=== PATIENT | female | born 1935 | race Two or more races ===

== ENCOUNTER 2023-12-25 11:54 | Emergency (ER) | payer OTHER ==
[~2023-12-25] VITALS: Ht 160 cm; Wt 51.3 kg
[2023-12-25] MEDS ORDERED: MULTIVIT INFUSN,ADULT 4,VIT K 10 ML VIAL IV ONE (12:30)
[2023-12-25] MEDS ORDERED: LEVALBUTEROL HCL 0.63 MG/3 ML SOLUTION IH ONE (12:30)
[2023-12-25] MEDS ORDERED: BENZONATATE 100 MG CAPSULE PO ONE (12:30)
[2023-12-25] MEDS ORDERED: 0.9 % SODIUM CHLORIDE 1,000 ML IV ONE (12:30)
[2023-12-25 12:54] LABS: HEMATOCRIT 35.3 % (36.0-45.00); HEMOGLOBIN 11.8 g/dL (12.0-15.00); MEAN CELL VOLUME 89.6 fL (80.00-100.00); MEAN CORPUSCULAR HEMOGLOBIN 29.8 pg (27.00-32.0); MEAN CORPUSCULAR HGB CONC 33.3 g/dl (32.0-36.0); PLATELET COUNT 98 K/uL (150-450); RED BLOOD COUNT 3.94 M/uL (4.00-6.00); RED CELL DISTRIBUTION WIDTH 13.2 % (11.5-14.5)
[2023-12-25 15:58] LABS: PH,URINE 6.5 (5.0-8.0); URINE APPEARANCE Cloudy; URINE BILIRRUBIN Negative (NEGATIVE); URINE BLOOD Small; URINE COLOR Yellow; URINE KETONE Negative (NEGATIVE); URINE LEUKOCYTE Small; URINE NITRATE Negative; URINE UROBILINOGEN 0.2 E.U./dl
[2023-12-25 16:01] LABS: URINE EPITHELIAL CELLS 10.3 uL (0.0-38.8); URINE RBC 28.3 uL (0.0-20.8); URINE WBC 486.6 uL (0.0-23.2)
[2023-12-25 16:07] LABS: URINE GLUCOSE >=1000 MG/DL (NEGATIVE); URINE PROTEIN 100 (NEGATIVE)
[2023-12-25 16:08] LABS: URINE BACTERIA > 9851.5 uL (0.0-1933)
[2023-12-25 16:50] LABS: HEMATOCRIT 32.2 % (36.0-45.00); HEMOGLOBIN 10.9 g/dL (12.0-15.00); MEAN CORPUSCULAR HGB CONC 33.7 g/dl (32.0-36.0); RED BLOOD COUNT 3.62 M/uL (4.00-6.00)
[2023-12-25 16:58] LABS: PLATELET COUNT 91 K/uL (150-450)
== END 2023-12-25 17:25 | disposition home or self-care (01) ==
LOC: ER 11:54
PROVIDERS: General Practice
DX: J00 Acute nasopharyngitis [common cold] (principal); I10 Essential (primary) hypertension; B34.9 Viral infection, unspecified; Z20.822 Contact with and (suspected) exposure to COVID-19
CPT/HCPCS: 36415; 71046; 93005; 94640; 96365; 96366; 99283; J3490; J7030

== ENCOUNTER 2024-03-22 16:19 | Inpatient (IN) | payer OTHER ==
[~2024-03-22] VITALS: Ht 160 cm; Wt 0.5 kg
[2024-03-22] MEDS ORDERED: PIPERACILLIN/TAZOBACTAM SODIUM 3.375 GM in 0.9 % SODIUM CHLORIDE 100 ML IV SCH (19:41)
[2024-03-22] MEDS ORDERED: 0.9 % SODIUM CHLORIDE 1,000 ML IV SCH (19:45)
[2024-03-22] MEDS ORDERED: ATORVASTATIN CALCIUM 40 MG TABLET PO SCH (19:45)
[2024-03-22] MEDS ORDERED: ACETAMINOPHEN 325 MG TABLET PO PRN (19:45)
[2024-03-22] MEDS ORDERED: ASPIRIN 81 MG TABLET.EC PO SCH (19:45)
[2024-03-22] MEDS ORDERED: hydrALAZINE HCL 20 MG VIAL IV PRN (20:30)
[2024-03-22 21:19] LABS: PH,URINE 5.5 (5.0-8.0); URINE BILIRRUBIN Negative (NEGATIVE); URINE BLOOD Large; URINE COLOR Orange; URINE GLUCOSE Negative (NEGATIVE); URINE KETONE Negative (NEGATIVE); URINE LEUKOCYTE Moderate; URINE NITRATE Positive
[2024-03-22 21:35] LABS: URINE EPITHELIAL CELLS 17.5 uL (0.0-38.8); URINE RBC 9.7 uL (0.0-20.8); URINE WBC 247.7 uL (0.0-23.2)
[2024-03-22 21:59] LABS: URINE BACTERIA > 9821.5 uL (0.0-1933); URINE PROTEIN 100 (NEGATIVE)
[2024-03-22 22:00] LABS: URINE APPEARANCE CLEAR
[2024-03-22 22:17] VITALS: O2SAT 97
[2024-03-23] VITALS (9 sets, daily range): BP systolic 101–128; BP diastolic 75–89; O2SAT 90–99
[2024-03-23] MEDS ORDERED: ACETAMINOPHEN 500 MG GEL..CAP PO PRN (08:15)
[2024-03-23 08:42] LABS: MEAN CELL VOLUME 85.9 fL (80.00-100.00); MEAN CORPUSCULAR HGB CONC 34.7 g/dl (32.0-36.0); RED BLOOD COUNT 2.41 M/uL (4.00-6.00); RED CELL DISTRIBUTION WIDTH 14.5 % (11.5-14.5)
[2024-03-23 08:51] LABS: MEAN CORPUSCULAR HEMOGLOBIN 29.8 pg (27.00-32.0)
[2024-03-23 08:54] LABS: HEMATOCRIT 20.7 % (36.0-45.00)
[2024-03-23 08:55] LABS: HEMOGLOBIN 7.2 g/dL (12.0-15.00)
[2024-03-23 08:56] LABS: PLATELET COUNT 110 K/uL (150-450)
[2024-03-23 09:01] LABS: ERYTHROCYTE SEDIMENTATION RATE < 1 mm/hr
[2024-03-23] MEDS ORDERED: FUROsemide 20 MG/2 ML VIAL IV PRN (09:30)
[2024-03-23 16:42] LABS: MEAN CELL VOLUME 86.5 fL (80.00-100.00); MEAN CORPUSCULAR HEMOGLOBIN 30.6 pg (27.00-32.0); MEAN CORPUSCULAR HGB CONC 35.3 g/dl (32.0-36.0); PLATELET COUNT 115 K/uL (150-450); RED BLOOD COUNT 2.32 M/uL (4.00-6.00); RED CELL DISTRIBUTION WIDTH 14.9 % (11.5-14.5)
[2024-03-23 16:47] LABS: HEMOGLOBIN 7.1 g/dL (12.0-15.00)
[2024-03-23] MEDS ORDERED: LACTOBACILLUS ACIDOPHILUS 1 CAP CAP PO SCH (17:00)
[2024-03-23 21:47] LABS: CKMB 2.6 NG/ML (0.5-3.6)
[2024-03-24] VITALS (11 sets, daily range): BP systolic 11–138; BP diastolic 49–84; O2SAT 97–100
[2024-03-24] MEDS ORDERED: PANTOPRAZOLE SODIUM 40 MG TABLET.DR PO SCH (09:33)
[2024-03-24] MEDS ORDERED: NOREPINEPHRINE BITARTRATE 4 MG in DEXTROSE 5 % IN WATER 250 ML IV SCH (10:15)
[2024-03-24 11:03] LABS: MEAN CELL VOLUME 87.7 fL (80.00-100.00); MEAN CORPUSCULAR HGB CONC 35.5 g/dl (32.0-36.0); RED BLOOD COUNT 2.03 M/uL (4.00-6.00); RED CELL DISTRIBUTION WIDTH 14.9 % (11.5-14.5)
[2024-03-24 11:04] LABS: HEMATOCRIT 17.8 % (36.0-45.00)
[2024-03-24 11:08] LABS: HEMOGLOBIN 6.3 g/dL (12.0-15.00); PLATELET COUNT 121 K/uL (150-450)
[2024-03-24 11:35] LABS: ALBUMIN 1.9 gm/dL (3.4-5.0); BILIRUBIN TOTAL 1.62 mg/dL (0.3-1.2); CALCIUM 7.6 mg/dL (8.5-10.1); CHOL HDL RATIO 3.7 (0-5.0); CREATININE SERUM 1.72 mg/dL (0.55-1.02); GFR 28.11; GLOBULINA 2.7 G/DL (2.4-3.5); MAGNESIUM 1.8 mg/dL (1.8-2.4); PHOSPHOROUS 4.1 mg/dL (2.5-4.9); TOTAL PROTEIN 4.6 gm/dL (6.4-8.2)
[2024-03-24 11:38] LABS: BILIRUBIN,CONJUGATED 0.32 mg/dL (0.0-0.2); BILIRUBIN,UNCONJUGATED 1.3 mg/dL (0.0-0.6); C-REACTIVE PROTEIN 3.4 MG/DL (0.00-0.29)
[2024-03-24 11:39] LABS: POTASSIUM 5.7 mEq/L (3.5-5.1)
[2024-03-24 11:42] LABS: TSH 0.947 uIU/mL (0.358-3.74)
[2024-03-24 11:45] LABS: T4 FREE 1.67 NG/ML (0.76-1.46)
[2024-03-24] MEDS ORDERED: DIPHENHYDRAMINE HCL 50 MG/ML VIAL 1ML IV PRN (16:30)
[2024-03-24] MEDS ORDERED: DIPHENHYDRAMINE HCL 50 MG/ML VIAL 1ML IV SCH (16:30)
[2024-03-24] MEDS ORDERED: DIPHENHYDRAMINE HCL 50 MG/ML VIAL 1ML ONE (16:36)
[2024-03-24] MEDS ORDERED: PIPERACILLIN/TAZOBACTAM SODIUM 2.25 GM in 0.9 % SODIUM CHLORIDE 50 ML IV SCH (18:00)
[2024-03-25] VITALS: BP 112/74; O2SAT 99
[2024-03-25 04:00] VITALS: BP 101/68; O2SAT 100
[2024-03-25 07:13] VITALS: BP 132/87; O2SAT 100
[2024-03-25 09:24] LABS: CALCIUM 7.9 mg/dL (8.5-10.1); CKMB 1.9 NG/ML (0.5-3.6); CREATININE SERUM 1.6 mg/dL (0.55-1.02); GFR 30.56; POTASSIUM 4.25 mEq/L (3.5-5.1)
[2024-03-25 09:47] LABS: HEMATOCRIT 23.4 % (36.0-45.00); MEAN CELL VOLUME 92.4 fL (80.00-100.00); MEAN CORPUSCULAR HEMOGLOBIN 32.6 pg (27.00-32.0); MEAN CORPUSCULAR HGB CONC 35.5 g/dl (32.0-36.0); RED BLOOD COUNT 2.54 M/uL (4.00-6.00); RED CELL DISTRIBUTION WIDTH 15.2 % (11.5-14.5)
[2024-03-25 09:51] LABS: HEMOGLOBIN 8.3 g/dL (12.0-15.00)
[2024-03-25 09:52] LABS: PLATELET COUNT 127 K/uL (150-450)
[2024-03-25 12:00] VITALS: BP 111/82; O2SAT 100
[2024-03-25 12:36] LABS: URINE APPEARANCE Clear; URINE BILIRRUBIN Negative (NEGATIVE); URINE BLOOD Negative; URINE COLOR Dark Yellow; URINE GLUCOSE Negative (NEGATIVE); URINE KETONE Negative (NEGATIVE); URINE LEUKOCYTE Negative; URINE NITRATE Positive; URINE PROTEIN Negative (NEGATIVE); URINE UROBILINOGEN 0.2 E.U./dl
[2024-03-25 12:40] LABS: URINE BACTERIA 15.9 uL (0.0-1933); URINE EPITHELIAL CELLS 17.5 uL (0.0-38.8); URINE WBC 17.2 uL (0.0-23.2)
[2024-03-25 13:07] LABS: URINE CAST 0.58 uL (0.0-1.40); URINE RBC 1.1 uL (0.0-20.8)
[2024-03-25 13:09] LABS: URINE EPITHELIAL CELLS 0-4 /HPF
[2024-03-25] MEDS ORDERED: SODIUM CL 0.9% 50 ML IV.SOLN IV ONE (14:26)
[2024-03-25 15:14] VITALS: BP 119/78; O2SAT 99
[2024-03-25 20:11] VITALS: BP 111/68; O2SAT 97
[2024-03-26] VITALS (7 sets, daily range): BP systolic 118–141; BP diastolic 65–99; O2SAT 95–100
[2024-03-26 07:26] LABS: ALBUMIN 1.9 gm/dL (3.4-5.0); ALKALINE PHOSPHATASE 50 U/L (50-136); ALT/SGPT 24 U/L (12-78); ANION GAP 12 (10.0-20.0); AST/SGOT 33 U/L (15-37); BILIRUBIN TOTAL 1.18 mg/dL (0.3-1.2); BLOOD UREA NITROGEN 23 mg/dL (7-18); BUN CREA RATIO 14 (7.0-25.0); CALCIUM 7.7 mg/dL (8.5-10.1); CARBON DIOXIDE 22 mEq/L (21-32); CHLORIDE 112 mmol/L (98-107); CKMB < 1.0 NG/ML (0.5-3.6); GLOBULINA 2.8 G/DL (2.4-3.5); GLUCOSE FASTING 87 mg/dL (65-100); OSMOLALITY SERUM 284 MOSM/KG (275-295); POTASSIUM 4.71 mEq/L (3.5-5.1); SODIUM 141 mmol/L (136-145); TOTAL PROTEIN 4.7 gm/dL (6.4-8.2)
[2024-03-26 07:38] LABS: MEAN CELL VOLUME 91.1 fL (80.00-100.00); MEAN CORPUSCULAR HGB CONC 35.4 g/dl (32.0-36.0); PLATELET COUNT 137 K/uL (150-450); RED BLOOD COUNT 2.33 M/uL (4.00-6.00); RED CELL DISTRIBUTION WIDTH 15.3 % (11.5-14.5)
[2024-03-26 07:45] LABS: HEMATOCRIT 21.2 % (36.0-45.00); HEMOGLOBIN 7.5 g/dL (12.0-15.00); MEAN CORPUSCULAR HEMOGLOBIN 32.1 pg (27.00-32.0)
[2024-03-26 10:00] LABS: ob POSITIVE (NEGATIVE)
[2024-03-26] MEDS ORDERED: SODIUM CL 0.9% 50 ML IV.SOLN IV ONE (11:48)
[2024-03-26] MEDS ORDERED: CEFTRIAXONE SODIUM 2,000 MG VIAL IV SCH (17:00)
[2024-03-27 00:15] LABS: HEMATOCRIT 25.7 % (36.0-45.00); MEAN CELL VOLUME 89.7 fL (80.00-100.00); MEAN CORPUSCULAR HGB CONC 34.1 g/dl (32.0-36.0); RED CELL DISTRIBUTION WIDTH 15.4 % (11.5-14.5)
[2024-03-27 00:16] LABS: MEAN CORPUSCULAR HEMOGLOBIN 30.6 pg (27.00-32.0)
[2024-03-27 00:18] LABS: HEMOGLOBIN 8.8 g/dL (12.0-15.00); PLATELET COUNT 128 K/uL (150-450); RED BLOOD COUNT 2.87 M/uL (4.00-6.00)
[2024-03-27 04:00] VITALS: BP 129/72; O2SAT 96
[2024-03-27 06:46] LABS: ALBUMIN 1.8 gm/dL (3.4-5.0); BILIRUBIN TOTAL 0.69 mg/dL (0.3-1.2); CALCIUM 7.8 mg/dL (8.5-10.1); CREATININE SERUM 1.43 mg/dL (0.55-1.02); GFR 34.79; GLOBULINA 2.3 G/DL (2.4-3.5); TOTAL PROTEIN 4.1 gm/dL (6.4-8.2)
[2024-03-27 06:48] LABS: POTASSIUM 5.01 mEq/L (3.5-5.1)
[2024-03-27 06:49] LABS: BILIRUBIN,CONJUGATED 0.13 mg/dL (0.0-0.2); BILIRUBIN,UNCONJUGATED 0.56 mg/dL (0.0-0.6)
[2024-03-27 07:50] VITALS: BP 142/73; O2SAT 97
[2024-03-27] MEDS ORDERED: POLYETHYLENE GLYCOL 3350 17 GM BLIST.PACK PO SCH (09:00)
[2024-03-27] MEDS ORDERED: DEXAMETHASONE SODIUM PHOSP/PF 10 MG/ML VIAL IV SCH (09:00)
[2024-03-27 09:10] LABS: HEMATOCRIT 24.3 % (36.0-45.00); MEAN CELL VOLUME 89.9 fL (80.00-100.00); MEAN CORPUSCULAR HGB CONC 35.4 g/dl (32.0-36.0); RED CELL DISTRIBUTION WIDTH 15.3 % (11.5-14.5)
[2024-03-27 09:31] LABS: MEAN CORPUSCULAR HEMOGLOBIN 31.8 pg (27.00-32.0); PLATELET COUNT 124 K/uL (150-450)
[2024-03-27 09:32] LABS: HEMOGLOBIN 8.6 g/dL (12.0-15.00)
[2024-03-27 10:27] LABS: FERRITIN 2316.6 NG/ML (8-252)
[2024-03-27 10:38] LABS: FOLIC ACID 16.31 ng/ml (4.78-20)
[2024-03-27 12:00] VITALS: BP 162/99; O2SAT 98
[2024-03-27 15:20] VITALS: BP 117/59; O2SAT 95
[2024-03-27 20:00] VITALS: BP 157/96; O2SAT 96
[2024-03-28] VITALS (7 sets, daily range): BP systolic 73–170; BP diastolic 53–89; O2SAT 95–100
[2024-03-28 03:46] LABS: HEMATOCRIT 28.2 % (36.0-45.00); HEMOGLOBIN 9.8 g/dL (12.0-15.00); MEAN CELL VOLUME 88.3 fL (80.00-100.00); MEAN CORPUSCULAR HEMOGLOBIN 30.8 pg (27.00-32.0); MEAN CORPUSCULAR HGB CONC 34.9 g/dl (32.0-36.0); RED BLOOD COUNT 3.19 M/uL (4.00-6.00)
[2024-03-28 03:48] LABS: PLATELET COUNT 120 K/uL (150-450)
[2024-03-28] MEDS ORDERED: FAMOTIDINE/PF 20 MG/2 ML VIAL IV PUSH NR (13:45)
[2024-03-28 14:04] LABS: kappa lambda r 2.67 (0.26-1.65); kappa light 27.2 mg/L (3.3-19.4); lambda light 10.2 mg/L (5.7-26.3)
[2024-03-28] MEDS ORDERED: SUCRALFATE 1 G TABLET PO SCH (17:00)
[2024-03-29] VITALS (7 sets, daily range): BP systolic 149–153; BP diastolic 68–80; O2SAT 90–98
[2024-03-30 01:05] VITALS: BP 159/83; O2SAT 96
[2024-03-30 02:30] VITALS: O2SAT 96
[2024-03-30 06:15] VITALS: O2SAT 97
[2024-03-30 07:40] LABS: HEMATOCRIT 30.8 % (36.0-45.00); MEAN CORPUSCULAR HGB CONC 33.9 g/dl (32.0-36.0); RED BLOOD COUNT 3.43 M/uL (4.00-6.00); RED CELL DISTRIBUTION WIDTH 16.3 % (11.5-14.5)
[2024-03-30 07:41] LABS: PLATELET COUNT 116 K/uL (150-450)
[2024-03-30 07:43] LABS: HEMOGLOBIN 10.5 g/dL (12.0-15.00); MEAN CORPUSCULAR HEMOGLOBIN 30.6 pg (27.00-32.0)
[2024-03-30 07:44] LABS: ALBUMIN 2.1 gm/dL (3.4-5.0); BILIRUBIN TOTAL 0.45 mg/dL (0.3-1.2); CALCIUM 7.7 mg/dL (8.5-10.1); CREATININE SERUM 1.22 mg/dL (0.55-1.02); GFR 41.79; GLOBULINA 2.3 G/DL (2.4-3.5); MAGNESIUM 1.7 mg/dL (1.8-2.4); PHOSPHOROUS 3.4 mg/dL (2.5-4.9); TOTAL PROTEIN 4.4 gm/dL (6.4-8.2)
[2024-03-30 07:45] LABS: POTASSIUM 5.68 mEq/L (3.5-5.1)
[2024-03-30] MEDS ORDERED: METOPROLOL SUCCINATE 25 MG TAB.SR.24H PO SCH (09:07)
[2024-03-30 09:49] VITALS: O2SAT 96
[2024-03-30] MEDS ORDERED: SODIUM POLYSTYRENE SULFONATE 30G/8 TSP PO SCH (10:14)
[2024-03-30 13:41] VITALS: O2SAT 96
[2024-03-30] MEDS ORDERED: ENALAPRILAT DIHYDRATE 1.25 MG/ML VIAL IV STA (13:46)
[2024-03-30] MEDS ORDERED: INTESTINEX680 M1 PO (14:14)
[2024-03-30] MEDS ORDERED: ST. JOSEPH ASPI81 M2 PO (14:14)
[2024-03-30] MEDS ORDERED: TOPROL XL25 M1 PO (14:14)
[2024-03-30] MEDS ORDERED: PANTOPRAZOLE SO40 MG PO (14:14)
[2024-03-30] MEDS ORDERED: MEDROLPACK PO (14:14)
[2024-03-30] MEDS ORDERED: LIPITOR40 M1 PO (14:14)
[2024-03-30] MEDS ORDERED: CARAFATE1 GM PO (14:14)
[2024-03-31 14:04] LABS: a:g ratio 0.9 (0.7-1.7); alpha 1 g 0.4 g/dL (0.0-0.4); alpha 2 0.5 g/dL (0.4-1.0); beta g 0.9 g/dL (0.7-1.3); gamma g 0.5 g/dL (0.4-1.8); globulin t 2.4 g/dL (2.2-3.9); prot total 4.5 g/dL (6.0-8.5)
== END 2024-03-30 16:07 | disposition home or self-care (01) | DRG 690 ==
LOC: ER 16:22 → SURH 20:23 → ICU 03-24 18:03 → SURH 03-28 22:36
PROVIDERS: General Practice; Internal Medicine; Internal Medicine Hematology & Oncology; Internal Medicine Infectious Disease; ADMIT Internal Medicine; ATTEND Internal Medicine
PROC: B030ZZZ Magnetic Resonance Imaging (MRI) of Brain (ICD-10-PCS; principal; 2024-03-22)
PROC: 4A12X4Z Monitoring of Cardiac Electrical Activity, External Approach (ICD-10-PCS; 2024-03-22)
PROC: B345ZZZ Ultrasonography of Bilateral Common Carotid Arteries (ICD-10-PCS; 2024-03-23)
PROC: B246ZZZ Ultrasonography of Right and Left Heart (ICD-10-PCS; 2024-03-23)
PROC: 30233N1 Transfusion of Nonautologous Red Blood Cells into Peripheral Vein, Percutaneous Approach (ICD-10-PCS; 2024-03-25)
PROC: 30233L1 Transfusion of Nonautologous Fresh Plasma into Peripheral Vein, Percutaneous Approach (ICD-10-PCS; 2024-03-25)
PROC: CD271ZZ Tomographic (Tomo) Nuclear Medicine Imaging of Gastrointestinal Tract using Technetium 99m (Tc-99m) (ICD-10-PCS; 2024-03-27)
DX: N39.0 Urinary tract infection, site not specified (principal); N17.8 Other acute kidney failure; C90.00 Multiple myeloma not having achieved remission; E87.1 Hypo-osmolality and hyponatremia; I48.91 Unspecified atrial fibrillation; I10 Essential (primary) hypertension; E78.49 Other hyperlipidemia; I95.89 Other hypotension; S00.83XA Contusion of other part of head, initial encounter; W13.3XXA Fall through floor, initial encounter; Y92.192 Bathroom in other specified residential institution as the place of occurrence of the external cause; D64.89 Other specified anemias
CPT/HCPCS: 70551